=== PATIENT | female | born 1980 | race Caucasian/White ===

== ENCOUNTER 2018-02-16 13:53 | Emergency (ER) | payer OTHER ==
[2018-02-16 14:13] VITALS: BP 166/105
[2018-02-16] MEDS ORDERED: HYDROmorphone 0.5 MG/0.5 ML SYRINGE IM ONE (14:19)
--- NOTE | 2018-02-16 14:31 | EDM.PDOC ---
ED HPI GENERAL MEDICAL PROBLEM - General Chief Complaint: Lower Extremity Injury/Pain Stated Complaint: LT KNEE INJURY Time Seen by Provider: 02/16/18 14:10 Source of Information: Reports: Patient History Limitations: Reports: No Limitations - History of Present Illness INITIAL COMMENTS - FREE TEXT/NARRATIVE: Patient is a 37 y/o male who presents to the E.D. complaining of left knee pain. Patient states she was standing with her left leg back when a 1st grader ran into her left leg causing her to twist her left knee. Patient did not hear/ feel a pop. Experienced severe pain to the knee. Unable to place any weight and or flex/extend the left knee. States it feels like the inside of her knee is going to fall out. Patient has history of meniscus tear requiring surgery. This occurred sometime ago. Patient has no sensory/motor deficits distally. She denies any additional complaints. Left Knee Pain Score (Numeric/FACES): 7 - Related Data Allergies Allergy/AdvReac Type Severity Reaction Status Date / Time venom-honey bee Allergy Anaphylactic Verified 12/11/15 19:36 [bee venom (honey bee)] Shock Home Meds: Home Meds Dextroamphetamine/Amphetamine [Adderall 20 mg Tablet] 20 mg PO ASDIRECTED [History] FLUoxetine HCl [Prozac] 10 mg PO DAILY 12/16/15 [History] Ibuprofen 800 mg PO TID PRN #40 tablet 05/02/16 [Rx] Lysine 1,000 mg PO DAILY 05/02/16 [History] Metoprolol Tartrate 25 mg PO BID #60 tablet 05/02/16 [Rx] Omeprazole Magnesium [Prilosec Otc] 20 mg PO DAILY 05/02/16 [History] Acetaminophen/HYDROcodone [[place] 325-5 MG] 1 tab PO Q6H PRN #12 tablet 02/16/18 [Rx] Ondansetron [Zofran ODT] 4 mg PO Q6H PRN #12 tab.dis 02/16/18 [Rx] Past Medical History HEENT History: Reports: Impaired Vision Cardiovascular History: Reports: Hypertension Other Genitourinary History: bladder damage from recent surgery 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: Psychiatric History: Reports: Anxiety Hematologic History: Reports: Other (See Below) Other Hematologic History: Factor five [place] Oncologic (Cancer) History: Reports: Bladder, Ovarian Other Oncologic History: ovarian/bladder mass - Infectious Disease History Infectious Disease History: Reports: Scarlet Fever - Past Surgical History GI Surgical History: Reports: Cholecystectomy Female Surgical History: Reports: Section, Cystectomy, D&C, Hysterectomy, Oophorectomy Musculoskeletal Surgical History: Reports: Arthroscopic Knee, Arthroscopic Procedure Social & Family History - Family History Family Medical History: Noncontributory Cardiac: Reports: [place] Other Cardiac Family History: uncle and grandfather OBGYN: Reports: Neurological: Reports: CVA Endocrine/Metabolic: Reports: Diabetes, type II Other Endocrine/Metabolic Family History: grandmother Oncologic: Reports: Breast, Cervix Other Oncologic Family History: grandmother and aunt - Tobacco Use Smoking Status *Q: Never Smoker - Caffeine Use Caffeine Use: Reports: Coffee, Tea - Recreational Drug Use Recreational Drug Use: No Review of Systems - Review of Systems Review Of Systems: ROS reveals no pertinent complaints other than HPI. ED EXAM, GENERAL - Physical Exam Exam: See Below Exam Limited By: No Limitations General Appearance: Alert, WD/WN, Moderate Distress Ears: Hearing Grossly Normal Throat/Mouth: Normal Inspection, Normal Oropharynx, Normal Voice, No Airway Compromise Neck: Normal Inspection, Supple Respiratory/Chest: No Respiratory Distress, No Accessory Muscle Use Cardiovascular: Normal Peripheral Pulses, Regular Rate, Rhythm Peripheral Pulses: 3+: Posterior Tibial (L), Posterior Tibial (R), Dorsalis Pedis (L), Dorsalis Pedis (R) Extremities: Normal Inspection, Limited Range of Motion (Left knee), Other ( With palpation patient has generalized discomfort throughout. Unable to perform any provocative testing secondary to severe pain. No pain distally or proximally. No sensory motor deficits distally as well.). No: Joint Swelling, Pallor Neurological: Alert, Oriented, CN II-XII Intact, Normal Cognition, No Motor/ Sensory Deficits Psychiatric: Normal Affect, Normal Mood Skin Exam: Warm, Dry, Intact, Normal Color Course - Vital Signs Last Recorded V/S: Last Vital Signs Temp 97.9 F 02/16/18 14:11 Pulse 130 H 02/16/18 14:11 Resp 20 02/16/18 14:11 BP 166/105 H 02/16/18 14:11 Pulse Ox 94 L 02/16/18 14:11 - Orders/Labs/Meds Orders: Active Orders 24 hr Category Date Time Status Communication Order [RC] ASDIRECTED Care 02/16/18 14:20 Active Knee Min 4V Rt [CR] Stat Exams 02/16/18 14:19 Stop Req Ondansetron [Zofran ODT] Med 02/16/18 15:18 Once 4 mg PO ONETIME ONE DME for Discharge [COMM] Stat Oth 02/16/18 14:20 Ordered Meds: Medications Discontinued Medications Generic Name Dose Route Start Last Admin Trade Name Freq PRN Reason Stop Dose Admin Hydromorphone HCl 1 mg 02/16/18 14:19 02/16/18 14:42 Dilaudid IM 02/16/18 14:20 1 mg ONETIME ONE Administration - Re-Assessments/Exams Free Text/Narrative Re-Assessment/Exam: Order x-ray of the left knee along with Dilaudid 1 mg IM. X-ray of the left knee reviewed with Dr. Fajardo did not reveal any concerning findings. Final interpretation is pending. Order crutches and minimize her for discharge. Once pain is improved with go ahead and do additional testing. Reevaluation patient states the pain is improved but she is nauseous at this time. Patient has pain with valgus varus and also with posterior and anterior drawer testing. No significant instability noted patient would not allow full testing secondary to pain. I ordered Zofran 4 mg ODT. Discharge instructions as documented. Departure - Departure Time of Disposition: 15:14 Disposition: Home, Self-Care 01 Condition: Good Clinical Impression: Left knee sprain Qualifiers: Encounter type: initial encounter Involved ligament of knee: unspecified cruciate ligament Qualified Code(s): S83.502A - Sprain of unspecified cruciate ligament of left knee, initial encounter - Discharge Information Prescriptions: Acetaminophen/HYDROcodone [[place] 325-5 MG] 1 tab PO Q6H PRN #12 tablet PRN Reason: Pain (Severe 7-10) Ondansetron [Zofran ODT] 4 mg PO Q6H PRN #12 tab.dis PRN Reason: Nausea Instructions: Crutch Use, Adult, Leud-oh-Yamv, How to Use a Knee Brace, Knee Sprain, Adult Referrals: Haven Mo NP [Primary Care Provider] - Dirk Gee MD [Physician] - Daniele Ramos MD [Physician] - Forms: ED Department Discharge, ED Return to Work/School Form Additional Instructions: You are to be nonweightbearing toe-touch only for balance. Wear the knee immobilizer when ambulating only taking off to ice, bathe, and sleep. Call and make an appointment with orthopedic surgeon of your choice. Elevate when able to reduce any swelling and pain. Apply ice to the affected area 4 times daily, 30 minutes in duration, do not apply ice directly on the skin. For pain take ibuprofen and Tylenol in alternating fashion. For severe pain take [place] one tab every 6 hours as needed. Please return to the ED as needed for any new or worsening symptoms. Do not drive today. Do not drive while taking norco. Do not take norco and tylenol together. - My Orders Last 24 Hours: My Active Orders 02/16/18 14:19 Knee Min 4V Rt [CR] Stat 02/16/18 14:20 Communication Order [RC] ASDIRECTED DME for Discharge [COMM] Stat 02/16/18 15:18 Ondansetron [Zofran ODT] 4 mg PO ONETIME ONE - Assessment/Plan Last 24 Hours: My Active Orders 02/16/18 14:19 Knee Min 4V Rt [CR] Stat 02/16/18 14:20 Communication Order [RC] ASDIRECTED DME for Discharge [COMM] Stat 02/16/18 15:18 Ondansetron [Zofran ODT] 4 mg PO ONETIME ONE
--- NOTE | 2018-02-16 14:52 | CR ---
Left knee: 4 views of the left knee were obtained. Comparison: No prior knee exam. Mild medial joint space narrowing is seen. Lateral joint space is preserved. No joint effusion is seen. No acute fracture or other bony abnormality is seen. Impression: 1. Mild medial joint space narrowing. 2. Left knee study is otherwise unremarkable. Diagnostic code #2
[2018-02-16] MEDS ORDERED: Ondansetron 4 MG Tab.DIS PO ONE (15:18)
== END 2018-02-16 15:30 | disposition home or self-care (01) ==
LOC: JD.ED 13:53
DX: S83.502A Sprain of unspecified cruciate ligament of left knee, initial encounter (principal); I10 Essential (primary) hypertension; Z91.030 Bee allergy status; Z79.899 Other long term (current) drug therapy; X50.9XXA Other and unspecified overexertion or strenuous movements or postures, initial encounter
CPT/HCPCS: 73564; 96372; 99284; A9270; J1170